=== PATIENT | male | born 1990 ===

== ENCOUNTER 2021-09-27 19:58 | Emergency (ER) | payer OTHER, SELFPAY ==
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
[2021-09-27] MEDS ORDERED: TETANUS & DIPHTHERIA TOX,ADULT 0.5 ML VIAL ONE (21:46)
[2021-09-27 22:20] VITALS: BP 115/87; TEMP 98.1; O2SAT 100
== END 2021-09-27 21:58 | disposition home or self-care (01) ==
LOC: ER 19:58
PROC: 0JQN0ZZ Repair Right Lower Leg Subcutaneous Tissue and Fascia, Open Approach (ICD-10-PCS; principal; 2021-09-27)
DX: S81.811A Laceration without foreign body, right lower leg, initial encounter (principal); W26.8XXA Contact with other sharp object(s), not elsewhere classified, initial encounter; Z23 Encounter for immunization; F17.210 Nicotine dependence, cigarettes, uncomplicated
CPT/HCPCS: 90471; 90714; 99283